=== PATIENT | female | born 1970 ===

== ENCOUNTER 2018-10-20 08:54 | Emergency (ER) | payer SELFPAY ==
[2018-10-20 09:02] VITALS: BMI 26.4
[2018-10-20] MEDS ORDERED: Promethazine DM 12.5 mg-30 mg/10 ml Syrup PO STA (09:58)
--- NOTE | 2018-10-20 10:10 | ED PDOC ---
HPI: Headache Additional Complaint(s): 48 yo female patient with PMH of thyroid nodule s/p surgery presents today c/o cough, fever and yellowish sputum production since 1 month ago. Patient endorses she has been trying OTC cough and fever meds w/o improvement. Associated frontal headache meanly when she coughs and b/l ear pain. Also patient states nasal congestion. She denies sick contacts, chills, nausea, ear discharge, throat pain, vomiting, abd pain urinary sx or changes in BM. PCP: at clinic <Brigitte Arnold - Last Filed: 10/20/18 16:27> <Alexandria Smith - Last Filed: 10/22/18 07:34> Time Seen by Provider: 10/20/18 09:47 Chief Complaint (Nursing): Headache Supervising Attending Note - Supervising Attending Note The Documented history was done by the: Physician Cargo Services Coordinator, Attending Physician The documented physical exam was done by the: Physician Cargo Services Coordinator, Attending Robert king The documented procedures were done by the: Physician Cargo Services Coordinator, Attending Physician - Attestation: I have personally seen and examined this patient.: Yes I have fully participated in the care of the patient.: Yes I have reviewed all pertinent clinical information: Yes <Alexandria Smith - Last Filed: 10/22/18 07:34> Past Medical History Vital Signs: Last Vital Signs Temp 98.7 F 10/20/18 09:00 Pulse 92 H 10/20/18 09:00 Resp 16 10/20/18 09:00 BP 130/54 L 10/20/18 09:00 Pulse Ox 95 10/20/18 09:00 - Medical History PMH: Hypothyroidism - Family History Family History: States: Unknown Family Hx <Brigitte Arnold - Last Filed: 10/20/18 16:27> Reviewed: Historical Data, Nursing Documentation, Vital Signs Vital Signs: Last Vital Signs Temp 97.7 F 10/20/18 17:02 Pulse 77 10/20/18 17:02 Resp 19 10/20/18 17:02 BP 118/75 10/20/18 17:02 Pulse Ox 98 10/20/18 17:02 - Surgical History Surgical History: No Surg Hx <Alexandria Smith - Last Filed: 10/22/18 07:34> - Home Medications Home Medications: Ambulatory Orders Medication Instructions Recorded Levofloxacin [Levaquin] 750 mg PO DAILY 7 Days #7 tablet 10/20/18 - Allergies Allergies/Adverse Reactions: Allergies Allergy/AdvReac Type Severity Reaction Status Date / Time No Known Allergies Allergy Verified 10/20/18 09:48 Review of Systems Constitutional: Positive for: Fever, Malaise. Negative for: Weight loss ENT: Positive for: Ear Pain, Nose Discharge, Nose Congestion. Negative for: Ear Discharge, Throat Pain, Throat Swelling Cardiovascular: Negative for: Chest Pain, Palpitations, Edema Respiratory: Positive for: Cough, Sputum. Negative for: Shortness of Breath, Hemoptysis, Wheezing Gastrointestinal: Negative for: Nausea, Vomiting, Abdominal Pain, Diarrhea Genitourinary Female: Negative for: Dysuria, Incontinence Neurological: Negative for: Weakness, Numbness, Dizziness <Brigitte Arnold - Last Filed: 10/20/18 16:27> ROS Statement: Except As Marked, All Systems Reviewed And Found Negative <Alexandria Smith - Last Filed: 10/22/18 07:34> Physical Exam - Reviewed Nursing Documentation Reviewed: Yes Vital Signs Reviewed: Yes - Physical Exam Appears: Positive for: No Acute Distress Head Exam: Positive for: NORMAL INSPECTION Skin: Positive for: Normal Color, Warm, Dry Eye Exam: Positive for: EOMI, PERRL ENT: Positive for: TM Is/Are (normal), Nasal Congestion. Negative for: Pharyngeal Erythema, Tonsillar Exudate Neck: Positive for: Painless ROM, Supple Cardiovascular/Chest: Positive for: Regular Rate, Rhythm. Negative for: Murmur, Tachycardia Respiratory: Positive for: Normal Breath Sounds. Negative for: Crackles, Rales, Wheezing, Respiratory Distress Gastrointestinal/Abdominal: Positive for: Bowel Sounds, Soft. Negative for: Tenderness, Distended Extremity: Negative for: Tenderness, Pedal Edema Neurological/Psych: Positive for: Awake, Alert, Oriented, buyers' agent II-XII <Brigitte Arnold - Last Filed: 10/20/18 16:27> - Reviewed Nursing Documentation Reviewed: Yes <Alexandria Smith - Last Filed: 10/22/18 07:34> - Laboratory Results Result Diagrams: 10/20/18 10:15 10/20/18 10:15 - ECG O2 Sat by Pulse Oximetry: 95 <Brigitte Arnold - Last Filed: 10/20/18 16:27> - Laboratory Results Result Diagrams: 10/20/18 10:15 10/20/18 10:15 Lab Results: Total Bilirubin 0.5 mg/dl (0.2-1.3) 10/20/18 10:15 AST 53 U/L (14-36) H D 10/20/18 10:15 ALT 81 U/L (9-52) H D 10/20/18 10:15 Alkaline Phosphatase 85 U/L (38-126) 10/20/18 10:15 Total Protein 8.3 G/DL (6.3-8.2) H 10/20/18 10:15 Albumin 4.5 g/dL (3.5-5.0) 10/20/18 10:15 Globulin 3.9 gm/dL (2.2-3.9) 10/20/18 10:15 Albumin/Globulin Ratio 1.1 (1.0-2.1) 10/20/18 10:15 <Alexandria Smith - Last Filed: 10/22/18 07:34> Medical Decision Making Medical Decision Making: DDx: Chronic bronchitis, Influenza, PNA, Sinusitis, Lung mass Initial plan: -- CBC -- CMP -- Influenza A&B -- CXR -- Tylenol PO once -- promethazine PO once -- Re eval FINDINGS: LUNGS: There is partial right lower lobe consolidation with patchy opacity in superior segment right. There is subsegmental atelectasis in the left lower lobe. T here is no pulmonary mass. MEDIASTINUM: Unremarkable thoracic aorta. No aneurysm or dissection. Normal sized heart. Main pulmonary artery unremarkable. No vascular congestion. No significantly enlarg ed lymph nodes. Shotty subcentimeter mediastinal nodes are identified. No aortic atherosclerotic calcification or mural plaque present. PLEURA: No pleural fluid. No pneumothorax. BONES: No fracture. No destructive lesion. UPPER ABDOMEN: Grossly unremarkable. OTHER FINDINGS: None. IMPRESSION: Right lower lobe infiltrate. Probable pneumonia. Patient feeling better, afebrile Rocephin 1g IV once will discharge home <Brigitte Arnold - Last Filed: 10/20/18 16:27> Disposition - Patient ED Disposition Is Patient to be Admitted: No Counseled Patient/Family Regarding: Studies Performed, Diagnosis, Need For Followup - Disposition Disposition: Routine/Home Disposition Time: 16:06 <Brigitte Arnold - Last Filed: 10/20/18 16:27> <Alexandria Smith - Last Filed: 10/22/18 07:34> - Clinical Impression Clinical Impression: Community acquired pneumonia - Disposition Referrals: [facility] [Outside] Condition: GOOD Additional Instructions: Return to ED if worsening or new sx within 24 hrs Keep hydrated Take meds as ordered F/U appt at [facility] on 10/27/18 at 11:20am with Dr Armendariz Prescriptions: Levofloxacin [Levaquin] 750 mg PO DAILY 7 Days #7 tablet Instructions: Community-Acquired Pneumonia, Adult (DC) Forms: [facility] (Togolese) Print Language: JAPANESE
[2018-10-20] MEDS ORDERED: Promethazine 6.25 MG/5 ML CUP ONE (10:22)
[2018-10-20 10:35] LABS: BASO # 0.2 K/uL (0.0-0.2); BASO % 1.3 % (0.0-2.0); EOS # 0.1 K/uL (0.0-0.7); EOS % 0.6 % (0.0-4.0); HEMOGLOBIN 9.6 g/dL (12.0-16.0); LYMPH # 1.5 K/uL (1.0-4.3); LYMPH % 12.6 % (20.0-40.0); MEAN CELL VOLUME 77.3 fl (81.0-99.0); MEAN CORPUSCULAR HEMOGLOBIN 25.3 pg (27.0-31.0); MEAN CORPUSCULAR HGB CONC 32.7 g/dL (33.0-37.0); MEAN PLATELET VOLUME 7.7 fl (7.2-11.7); MONO # 0.7 K/uL (0.0-0.8); MONO % 6.1 % (0.0-10.0); NEUT # 9.5 K/uL (1.8-7.0); NEUT % 79.4 % (50.0-75.0); RBC 3.79 Mil/uL (3.80-5.20); RED CELL DISTRIBUTION WIDTH 15.4 % (11.5-14.5)
[2018-10-20 10:47] LABS: ALB/GLOB RATIO 1.1 (1.0-2.1); ALBUMIN 4.5 g/dL (3.5-5.0); ALT/SGPT 81 U/L (9-52); AST/SGOT 53 U/L (14-36); BLOOD UREA NITROGEN 8 mg/dl (7-17); CALCIUM 7.8 mg/dL (8.4-10.2); GFR NON-AFRICAN AMERICAN > 60
[2018-10-20] MEDS ORDERED: Potassium Chloride 20 mEq ER Tab PO ONE ×2 (11:19→16:07)
[2018-10-20] MEDS ORDERED: Iodixanol 320 MG/ML 100 ML BOTTLE IV ONE (12:25)
[2018-10-20] MEDS ORDERED: Iodixanol 320 mg/ml 50 ml Sol IV ONE (12:25)
[2018-10-20] MEDS ORDERED: Sodium Chloride 0.9% 0 ML ONE (12:26)
[2018-10-20 13:43] VITALS: TEMP 97.7
[2018-10-20] MEDS ORDERED: Sodium Chloride 0.9% 50 ML IV ONE (14:53)
[2018-10-20] MEDS ORDERED: Iohexol 300 100 ML IJ ONE (14:53)
--- NOTE | 2018-10-20 15:06 | RAD ---
Date of service: 10/20/2018 HISTORY: cough and sob COMPARISON: None available. TECHNIQUE: 1 view obtained. FINDINGS: LUNGS: No active pulmonary disease. PLEURA: No significant pleural effusion identified, no pneumothorax apparent. CARDIOVASCULAR: No aortic atherosclerotic calcification present. Normal cardiac size. No pulmonary vascular congestion. OSSEOUS STRUCTURES: No significant abnormalities. VISUALIZED UPPER ABDOMEN: Normal. OTHER FINDINGS: None. IMPRESSION: No acute cardiopulmonary disease appreciated.
--- NOTE | 2018-10-20 15:29 | CT ---
Date of service: 10/20/2018 PROCEDURE: CT Chest with contrast HISTORY: r/o PNA COMPARISON: None available. TECHNIQUE: Contiguous axial images were obtained through the chest with intravenous contrast enhancement. Sagittal and coronal reconstructions were performed. IV contrast: 95 cc Omnipaque 300 Radiation dose: Total exam DLP = 273.35 mGy-cm. This CT exam was performed using one or more of the following dose reduction techniques: Automated exposure control, adjustment of the mA and/or kV according to patient size, and/or use of iterative reconstruction technique. FINDINGS: LUNGS: There is partial right lower lobe consolidation with patchy opacity in superior segment right. There is subsegmental atelectasis in the left lower lobe. There is no pulmonary mass. MEDIASTINUM: Unremarkable thoracic aorta. No aneurysm or dissection. Normal sized heart. Main pulmonary artery unremarkable. No vascular congestion. No significantly enlarged lymph nodes. Shotty subcentimeter mediastinal nodes are identified. No aortic atherosclerotic calcification or mural plaque present. PLEURA: No pleural fluid. No pneumothorax. BONES: No fracture. No destructive lesion. UPPER ABDOMEN: Grossly unremarkable. OTHER FINDINGS: None. IMPRESSION: Right lower lobe infiltrate. Probable pneumonia.
[2018-10-20] MEDS ORDERED: cefTRIAXone (Rocephin) 1 gm Inj ONE (16:06)
[2018-10-20 17:02] VITALS: BP 118/75; PULSE 77; RESP 19; O2SAT 98
== END 2018-10-20 17:24 | disposition home or self-care (01) ==
LOC: H.ER 08:54
DX: J18.9 Pneumonia, unspecified organism (principal)
CPT/HCPCS: 71045; 71260; 80053; 81025; 85025; 87040; 87804; 99285; J0696; Q9967